=== PATIENT | female | born 1980 | race Caucasian/White ===

== ENCOUNTER 2016-06-26 02:23 | Emergency (ER) | payer BC, OTHER ==
[~2016-06-26] VITALS: Ht 165.1 cm; Wt 86.0 kg
[~2016-06-26 02:23] MED LIST: IBUP600 PO; LORTA5 PO
[2016-06-26 02:36] VITALS: BP 107/74; PULSE 87; RESP 16; TEMP 98.6
[2016-06-26] MEDS ORDERED: LEVO.2 PO (02:36)
[2016-06-26] MEDS ORDERED: IBUP800T23 PO (02:45)
[2016-06-26] MEDS ORDERED: IBUPROFEN 800 MG TAB PO ONE (02:45)
--- NOTE | 2016-06-26 02:50 | PD ---
HPI Chief Complaint: Burn Time Seen by Provider: 02:45 Travel History International Travel<30 days: No Contact w/Intl Traveler<30days: No Traveled to known affect area: No History of Present Illness HPI 35-year-old [id number] white female presents to emergency department for evaluation of a burn. The patient is a employee here at [employer]. She was getting a patient a couple of hot tea. The patient states that the cup of hot water splashed on her right and left hand. This occurred sometime around 9 PM. She states that she has had some burning and tingling on the interdigital space of her right hand between the thumb and index and on the dorsal surface of her middle finger of the left hand. She is up-to-date with immunizations. She has not noted any skin breakdown. She immediately immersed her has in some cold water when it happened. She states that she is just getting over a cold. She had laryngitis. [facility] Past Medical History Narrative Medical hYPOTHYROIDISM Diminished Hearing: No Thyroid Disease: Yes (HYPOTHYROID.) Tetanus Vaccination: < 5 Years ?: Not LMP: CURRENTLY Past Surgical History Surgical History: No Previous Surgery Social History Alcohol Use: No Tobacco Use: No Substance Use: No Allergies-Medications (Allergen,Severity, Reaction): Coded Allergies: No Known Allergies (Unverified , 06/26/16) Reported Meds & Prescriptions Reported Meds & Active Scripts Active Reported Synthroid (Levothyroxine Sodium) 200 Mcg Tab 200 Mcg PO DAILY Review of Systems Except as stated in HPI: all other systems reviewed are Neg Physical Exam Narrative GENERAL: This is a well-nourished, well-developed patient, in no apparent distress. SKIN: There is some mild erythema to the interdigital space of the right hand between the thumb and index finger. There is no skin breakdown. There is also some mild erythema on the dorsum of the left middle finger but once again no skin breakdown., ecchymoses or lesions. Warm and dry. No circumferential injury. HEAD: Atraumatic. Normocephalic. EYES: PERRL, EOMI, no discharge or injection. No scleral icterus. EARS: Clear NOSE: Nasal turbinates appear normal. THROAT: Mucosa pink and moist. Airway patent. NECK: Trachea midline. supple, moves head freely. LUNGS: Clear to auscultation. CV: Regular in rhythm. ABDOMEN: Soft nontender. EXT: No clubbing cyanosis or edema. Data Data Last Documented VS Vital Signs Date Time Temp Pulse Resp B/P Pulse Ox O2 Delivery O2 Flow Rate FiO2 06/26/16 02:36 98.6 87 16 107/74 Orders Ibuprofen (Motrin) (06/26/16 02:45) MDM Medical Decision Making Medical Screen Exam Complete: Yes Emergency Medical Condition: Yes Medical Record Reviewed: Yes Differential Diagnosis MDM: Mild. Differential diagnoses: First-degree burn, second-degree burn, third-degree burn , abrasion Narrative Course The patient has mild first-degree burn to the dorsum of the right left hand. There is no second-degree burn. Patient's given Neosporin ointment and Motrin 800 mg by mouth. This is less than 1% total body surface area. Diagnosis Primary Impression: first-degree burn right and left hand less than 1% total body surface area Patient Instructions: General Instructions Additional Instructions: Rest. Elevation. Daily wound care with soap, water, Neosporin. Motrin. Recheck with employee med in 2-3 days. Return to the ER for any problems. Med/Other Pt SpecificInfo: Prescription(s) given, Wound Care Scripts Ibuprofen 800 Mg [id number] Mg PO Q8H PRN (Pain/Inflammation) #30 TAB Prov:Jhonatan Soto MD 06/26/16 Disposition: 01 DISCHARGE HOME Condition: Stable Jon Garcia Jun 26, 2016 02:50
== END 2016-06-26 02:57 | disposition home or self-care (01) ==
LOC: NEPB 02:23
DX: T23.131A Burn of first degree of multiple right fingers (nail), not including thumb, initial encounter (principal); T23.122A Burn of first degree of single left finger (nail) except thumb, initial encounter; T31.0 Burns involving less than 10% of body surface; X12.XXXA Contact with other hot fluids, initial encounter; Y93.F9 Activity, other caregiving; Y92.239 Unspecified place in hospital as the place of occurrence of the external cause; Y99.0 Civilian activity done for income or pay
CPT/HCPCS: 99283